=== PATIENT | male | born 1940 | race Caucasian/White ===

== ENCOUNTER → 2018-01-13 | Outpatient (CLI) | payer OTHER | LOC: PLD 08:25 → LAB SHORT 08:25 | DX: D48.5 Neoplasm of uncertain behavior of skin (principal) | CPT/HCPCS: 88305 ==

== ENCOUNTER → 2018-07-01 | Outpatient (CLI) | payer OTHER | END | disposition home or self-care (01) | LOC: PLD 08:43 → LAB SHORT 08:43 | DX: D22.5 Melanocytic nevi of trunk (principal) | CPT/HCPCS: 88305 ==

== ENCOUNTER → 2018-12-29 | Outpatient (CLI) | payer OTHER | END | disposition home or self-care (01) | LOC: LAB SHORT 08:58 → PLD 08:58 | DX: D22.5 Melanocytic nevi of trunk (principal) | CPT/HCPCS: 88305 ==

== ENCOUNTER → 2019-12-15 | Outpatient (CLI) | payer OTHER | END | disposition home or self-care (01) | LOC: LAB SHORT 11:50 → LAB EV 11:50 | DX: R35.0 Frequency of micturition (principal) | CPT/HCPCS: 87086 ==

== ENCOUNTER → 2021-08-07 | Outpatient (CLI) | payer OTHER ==
[2021-08-07 16:56] LABS: BASOPHILS ABSOLUTE AUTO 0.02 K/mm3 (0.00-0.23); BASOPHILS PERCENT AUTO 0 % (0-2); EOSINOPHILS ABSOLUTE AUTO 0.02 K/mm3 (0.00-0.68); EOSINOPHILS PERCENT AUTO 0 % (0-6); Hematocrit 42.6 % (37.0-53.0); Hemoglobin 13.8 g/dL (13.5-17.5); IMMATURE GRAN ABSOLUTE AUTO 0.05 K/mm3 (0.00-0.10); IMMATURE GRAN PERCENT AUTO 1 % (0-1); LYMPHOCYTES ABSOLUTE AUTO 0.88 K/mm3 (0.84-5.20); LYMPHOCYTES PERCENT AUTO 10 % (21-46); MONOCYTES ABSOLUTE AUTO 0.44 K/mm3 (0.16-1.47); MONOCYTES PERCENT AUTO 5 % (4-13); Mean Corpuscular HGB 27.9 pg (26.0-34.0); Mean Corpuscular HGB Conc 32.4 g/dL (31.5-36.5); Mean Corpuscular Volume 86 fL (80-100); Mean Platelet Volume 9.7 fL (9.1-12.4); NEUTROPHILS PERCENT AUTO 84 % (41-73); Platelet Count 338 K/mm3 (150-400); RDW Coefficient Variation 14.6 % (11.7-14.2); RDW Standard Deviation 45.6 fL (35.1-46.3); Red Blood Cell Count 4.94 M/mm3 (4.30-5.90); White Blood Cell Count 9.01 K/mm3 (4.00-11.30)
[2021-08-07 17:11] LABS: Alanine Aminotransfer (ALT/SGP 17 U/L (12-78); Albumin, Blood 4.2 g/dL (3.4-5.0); Albumin/Globulin Ratio 1.2 (0.8-1.8); Alk Phos 83 U/L (40-126); Anion Gap 10 mmol/L (6-16); Aspartate Aminotrans (AST/SGOT 24 U/L (12-37); Bilirubin, Total 0.7 mg/dL (0.1-1.0); Blood Urea Nitrogen 14 mg/dL (8-24); Bun/Creatinine Ratio 14.7 (12.0-20.0); CO2, Blood 29 mmol/L (21-32); Chloride, Blood 98 mmol/L (98-108); Creatinine, Blood 0.95 mg/dL (0.60-1.20); Globulin, Blood 3.6 g/dL (2.2-4.0); Glomerular Filtration Rate >60 (60-); Glucose, Blood 144 mg/dL (70-99); Potassium, Blood 3.9 mmol/L (3.5-5.5); Sodium, Blood 137 mmol/L (136-145); Total Protein, Blood 7.8 g/dL (6.4-8.2)
== END | disposition home or self-care (01) ==
LOC: LAB SHORT 16:49
PROVIDERS: Family Medicine
DX: R51.9 Headache, unspecified (principal)
CPT/HCPCS: 80053; 85025

== ENCOUNTER 2023-10-25 13:57 | Inpatient (IN) | payer OTHER ==
[~2023-10-25] VITALS: Ht 180.3 cm; Wt 71.8 kg
[2023-10-25] MEDS ORDERED: CARBIDOPA-LEVO1 EA15 PO (14:30)
[2023-10-25] MEDS ORDERED: RIVASTIGMINE PO (14:30)
[2023-10-25] MEDS ORDERED: TAMSULOSIN HCL0.4 M1 PO (14:58)
[2023-10-25] MEDS ORDERED: INBRIJA42 M1 INH (14:58)
[2023-10-25] MEDS ORDERED: RASAGILINE PO (14:58)
[2023-10-25 15:12] LABS: Hematocrit 38.6 % (37.0-53.0); Hemoglobin 12.6 g/dL (13.5-17.5); Mean Corpuscular HGB Conc 32.6 g/dL (31.5-36.5); Mean Corpuscular Volume 86 fL (80-100); Mean Platelet Volume 10.3 fL (9.1-12.4); Platelet Count 263 K/mm3 (150-400); RDW Coefficient Variation 15.1 % (11.7-14.2); RDW Standard Deviation 47.5 fL (35.1-46.3)
[2023-10-25 15:35] LABS: BAND PERCENT MAN 4 % (0-8); BASOPHILS ABSOLUTE MAN 0.05 K/mm3 (0.00-0.23); BASOPHILS PERCENT MAN 1 % (0-2); EOSINOPHILS PERCENT MAN 0 % (0-6); LYMPHOCYTES ABSOLUTE MAN 0.86 K/mm3 (0.84-5.20); LYMPHOCYTES PERCENT MAN 16 % (21-46); METAMYELOCYTE ABSOLUTE MAN 0.05 K/mm3 (0.00-0.00); METAMYELOCYTE PERCENT MAN 1 % (0-0); MONOCYTES ABSOLUTE MAN 0.81 K/mm3 (0.16-1.47); MONOCYTES PERCENT MAN 15 % (4-13); NEUTROPHILS ABSOLUTE MAN 3.61 K/mm3 (1.96-9.15); SEG NEUTROPHILS PERCENT MAN 63 % (41-73); TOTAL CELLS COUNTED 100
[2023-10-25 15:42] LABS: Source, Urine Clean Catch
[2023-10-25 15:46] LABS: Alanine Aminotransfer (ALT/SGP 11 U/L (12-78); Albumin, Blood 3.2 g/dL (3.4-5.0); Albumin/Globulin Ratio 0.9 (0.8-1.8); Alk Phos 57 U/L (50-136); Anion Gap 4 mmol/L (6-16); Aspartate Aminotrans (AST/SGOT 127 U/L (12-37); Bilirubin, Total 0.4 mg/dL (0.1-1.0); Blood Urea Nitrogen 25 mg/dL (8-24); Bun/Creatinine Ratio 27.7 (12.0-20.0); CHOL/HDL RATIO 2.5; CO2, Blood 29 mmol/L (21-32); Calcium, Blood 7.8 mg/dL (8.5-10.1); Chloride, Blood 103 mmol/L (98-108); Cholesterol 150 mg/dL (50-200); Globulin, Blood 3.6 g/dL (2.2-4.0); Glomerular Filtration Rate 84 (60-); Glucose, Blood 131 mg/dL (70-99); HDL Cholesterol 59 mg/dL (>39); LDL/HDL RATIO 1.3; Low Density Lipoprotein Chol 76 mg/dL (0-110); Potassium, Blood 4.1 mmol/L (3.5-5.5); Sodium, Blood 136 mmol/L (136-145); Total Protein, Blood 6.8 g/dL (6.4-8.2); Triglycerides 74 mg/dL (30-160); Very Low Density Lipoprot Chol 14 mg/dL (6-32)
[2023-10-25 15:51] LABS: Appearance, Urine Clear (Clear); Bilirubin, Urine Neg (Neg); Blood, Urine 2+ (Neg); Color, Urine Yellow (P-Yellow); Glucose Qualitative, Urine Neg (Neg); Ketones, Urine 1+ (Neg); Leukocyte Esterase, Urine Neg (Neg); Nitrite, Urine Neg (Neg); Protein, Urine 2+ (Neg); Urobilinogen, Urine NORM (Normal)
[2023-10-25 16:05] LABS: Granular Casts 0-2 /lpf (0)
[2023-10-25 16:06] LABS: White Blood Cells, Urine 0-2 /hpf (0-5)
[2023-10-25 16:08] LABS: Bacteria Mod /hpf; Squamous Epithelial Cells Rare /hpf (Few)
[2023-10-25 16:09] LABS: Amorphous Light (0-Heavy); Mucus Heavy (0-Heavy)
[2023-10-25 16:53] LABS: International Normalized Ratio 1.03; Prothrombin Time Results 10.8 Sec (9.7-11.5)
[2023-10-25 18:46] VITALS: BP 104/67
[2023-10-25] MEDS ORDERED: CARBLEV25 SL (18:50)
[2023-10-25] MEDS ORDERED: CARBLEV25 PO (18:51)
[2023-10-25 19:50] VITALS: BP 117/73
--- NOTE | 2023-10-25 22:44 | NUR ---
ASSUMPTION OF CARE AFTER RECEIVING REPORT FROM HELENE LONG, THIS RN ASSUMED CARE AT APPROX 1915. DURING INITIAL ENCOUNTER WITH THE PATIENT, THE PATIENT WAS LETHARGIC, RESTING WITH EYES CLOSED. NO SIGNS OF DISTRESS NOTED, EASILY AROUSABLE TO VERBAL STIMULI. IS ALERT AND ORIENTED X1. REPORTED THAT HE WAS "IN [place] DIFFICULTY ORIENTING TO CURRENT SITUATION, DIFFICULTY PARTICIPATING IN OR FOLLOWING CONVERSATION. INTERMITTENTLY PULLS AT LINES, CORDS. VSS. TELEMETRY SHOWING SINUS 60's-70's. BP STABLE. WHEN ASKED IF EXPERIENCING CHEST PAIN, PATIENT REPORTS "HEART PAIN." UNABLE TO ANSWERS QUESTIONS OR EXPLAIN FURTHER. HEPARIN BOLUS AND GTT INITIATED PER EMAR. IS ON ROOM AIR, SATS >90%. X2 IV's PLACED BY THIS RN. ATTENDS NOW IN PLACE. PO HOME MEDICATIONS ADMINISTERED PER EMAR, ABLE TO SWALLOW WITHOUT DIFFICULTY WITH WATER. COOPERATIVE WITH CARE AT THAT TIME. AT APPROX 2230, PATIENT ATTEMPTED TO AMBULATE OUT OF BED WITHOUT ASSIST. IV PULLED. PATIENT REMOVED WELDER MACHINE OPERATOR. X3 RN's AT BEDSIDE, UNABLE TO REORIENT TO CURRENT SITUATION. REPOSITIONED IN BED. CONTINUING TO PULL AT LINES/CORDS. NEW IV PLACED BY CONTINUOUS IMPROVEMENT COACH, JENNIFER. PATIENT REPORTING THAT HE NEEDS TO VOID, UNABLE TO VOID. BLADDER SCAN PERFORMED, >350ML. STRAIGHT CATH PROCEDURE TO BE PERFORMED PER POLICY. WHILE PERFORMING STRAIGHT CATH PROCEDURE, PATIENT BEGAN ATTEMPTING TO PUNCH AT STAFF MEMBERS. UNCOOPERATIVE WITH CARE, UNABLE TO REORIENT. ATTENDS, LINEN CHANGE PERFORMED BY X3 RN's, PATIENT CONTINUING TO ATTEMPT TO PUNCH AT STAFF. GOPI VEST NOW IN PLACE PER VERBAL ORDER BY MD VEGAS WHILE ROUNDING EARLIER. MD SUNG CONTACTED WITH UPDATE. PATIENT DOES RELAX ONCE STIMULI IS REDUCED, BUT IS CONTINUING TO ATTEMPT TO PULL AT LINES/DEVICES. CALL LIGHT IN REACH. BED ALARM ON. WILL CONTINUE TO MONITOR.
--- NOTE | 2023-10-25 23:05 | NUR ---
PATIENT's LEFT BEDSIDE AT APPROX 1930. PATIENT IS A POOR HISTORIAN, LIMITED ADMISSION HEALTH HISTORY DUE TO MENTATION. DID PROVIDE HOME MEDICATION LIST, HYDROMETER FINISHER UPDATED HOME MEDICATION LIST. COLLECTED OTHER INFORMATION FROM ELECTRONIC HEALTH RECORD. MD VELA.
[2023-10-26 00:02] VITALS: BP 150/88
[2023-10-26 00:49] VITALS: BP 159/87
--- NOTE | 2023-10-26 00:52 | NUR ---
UPDATE AT APPROX 2345, THIS RN NOTED THAT THE PATIENT HAD PULLED X3 IV ACCESS SITES. ATTEMPTING TO AMBULATE OUT OF BED. WHILE ATTEMPTING TO REORIENT, PATIENT BECAME INCREASINGLY AGITATED, ATTEMPTING TO PUNCH STAFF MEMBERS. UNABLE TO REORIENT. REMAINS AOX1. X3 RN's AT BEDSIDE. REPOSITIONED IN BED. X2 IV ACCESS SITES PLACED. BECOMING INCREASINLY VIOLENT TOWARDS STAFF. PLACED IN SOFT BILATERAL WRIST RESTRAINTS, GOPI VEST REMOVED. MD ON UNIT ROUNDING, MADE AWARE. RECEIVED ORDER FOR IM ZYPREXA IF ORDERED PO SEROQUEL IS INEFFECTIVE. ADMINISTERED PO SEROQUEL PER EMAR. CHANGED ATTENDS, PLACED CONDOM CATHETER FOR URINARY INCONTINENCE MANAGEMENT. DURING THIS ENCOUNTER, RATE INCREASE TO 130's-150's, SUSTAINING. MD NOTIFED. EKG OBTAINED, MD TO UNIT TO REVIEW EKG. RECEIVED ORDER FOR IV METOPROLOL PUSH. WILL ADMINISTER PER EMAR. LAB AT BEDSIDE TO DRAW REPEAT LABS, INCLUDING TROPONIN LEVELS. BP ELEVATED, SBP 150's.
[2023-10-26 01:07] LABS: BASOPHILS ABSOLUTE AUTO 0.01 K/mm3 (0.00-0.23); BASOPHILS PERCENT AUTO 0 % (0-2); EOSINOPHILS PERCENT AUTO 0 % (0-6); Hematocrit 42.7 % (37.0-53.0); Hemoglobin 14.1 g/dL (13.5-17.5); Mean Corpuscular HGB 28.2 pg (26.0-34.0); Mean Corpuscular Volume 85 fL (80-100); Mean Platelet Volume 9.5 fL (9.1-12.4); Platelet Count 258 K/mm3 (150-400); White Blood Cell Count 5.31 K/mm3 (4.00-11.30)
[2023-10-26 01:08] LABS: IMMATURE GRAN ABSOLUTE AUTO 0.02 K/mm3 (0.00-0.10); IMMATURE GRAN PERCENT AUTO 0 % (0-1); LYMPHOCYTES ABSOLUTE AUTO 1.51 K/mm3 (0.84-5.20); LYMPHOCYTES PERCENT AUTO 28 % (21-46); MONOCYTES ABSOLUTE AUTO 0.73 K/mm3 (0.16-1.47); MONOCYTES PERCENT AUTO 14 % (4-13); NEUTROPHILS ABSOLUTE AUTO 3.04 K/mm3 (1.96-9.15); NEUTROPHILS PERCENT AUTO 57 % (41-73)
--- NOTE | 2023-10-26 01:10 | NUR ---
X1 DOSE OF 5MG IV METOPROLOL ADMINISTERED PER EMAR. RATE DECREASE TO 90's-110's. BP 126/66 (84). MD AT BEDSIDE. RECEIVED VERBAL ORDER TO ADMINISTER AN ADDITIONAL DOSE OF 5MG IV METOPROLOL IN ONE HOUR IF RATE SUSTAINS >110. PATIENT CONTINUES TO INTERMITTENTLY PULL AT LINES/CORDS/DEVICES WITHIN REACH. IS MORE RELAXED, RESTING WITH EYES CLOSED AT TIMES. UNABLE TO REORIENT. CONTINUED MUMBLED SPEECH NOTED.
[2023-10-26 01:27] LABS: Albumin, Blood 3.3 g/dL (3.4-5.0); Albumin/Globulin Ratio 0.8 (0.8-1.8); Bilirubin, Total 0.2 mg/dL (0.1-1.0); Bun/Creatinine Ratio 27.9 (12.0-20.0); C-REACTIVE PROTEIN, EXT RANGE 6.85 mg/dL (0.000-0.300); Creatinine, Blood 0.72 mg/dL (0.60-1.20); Potassium, Blood 3.5 mmol/L (3.5-5.5); Total Protein, Blood 7.3 g/dL (6.4-8.2)
--- NOTE | 2023-10-26 01:38 | NUR ---
MD TO UNIT TO ROUND ON PATIENT. RECEIVED ORDER TO OBTAIN EKG ONCE RATE IS STABLE, 90 OR LESS, AND TO CONTACT TO COME VIEW EKG. WILL OBTAIN PER ORDER.
--- NOTE | 2023-10-26 02:29 | NUR ---
REPEAT EKG OBTAINED RATE MAINTAINING 80's-90's. MD TO UNIT FOR ROUNDING, VIEWED EKG. NOTIFIED OF TROPONIN OF 4802. NO NEW ORDERS RECEIVED.
[2023-10-26 03:00] VITALS: BP 141/92
--- NOTE | 2023-10-26 06:04 | NUR ---
SHIFT SUMMARY SEE PREVIOUS NOTES. PATIENT REMAINS ALERT AND ORIENTED X1. DECREASED AGITATION TOWARDS STAFF NOTED. CONTINUOUSLY ATTEMPTS TO PULL AT CONDOM CATH, TELEMETRY, ETC. UNABLE TO REORIENT. BILATERAL SOFT WRIST RESTRAINTS IN PLACE DUE TO CONTINUOUS PULLING AT LINES, CORDS AND UNABLE TO OBTAIN A CLINICAL SITTER AT THIS TIME. PO SEROQUEL ADMINISTERED AND IM ZYPREXA ADMINISTERED. HAS SINCE CONVERTED FROM AFIB 90's-110's TO SINUS 80's. HEPARIN GTT INFUSING PER EMAR. IVF INFUSING PER EMAR. SEE PREVIOUS NOTES. BP STABLE. REMAINS ON ROOM AIR, SATS >90%. NO SHORTNESS OF BREATH AT REST NOTED. OCCASSIONAL, PRODUCTIVE COUGH NOTED. CONDOM CATH PATENT, DRAINING RICO URINE TO GRAVITY. ATTENDS IN PLACE. REPOSITIONING TOLERATED. CALL LIGHT IN REACH. BED ALARM ON. WILL REPORT TO ONCOMING RN.
--- NOTE | 2023-10-26 07:30 | NUR ---
Initial assessment: Patient is resting with his eyes closed, he easily awakens with verbal stimuli. He is oriented to self only, he thinks we are in dialysis. He is reoriented. He is in bilat upper extremity soft wrist restraints due to multiple attempts to get OOB and pulling at IVs and other lines. Patient does immediately go to his lines when the restraints are removed. Restraints back in place. HR irreg, he is in SR with PACs with a rate in the 70s-80s. He denies chest pain at this time. LS CTA, biox is 100% on RA. BT+, attends in place. He has a condom cath in place draining clear pink tinged urine. This RN assisted the patient to brush his teeth. AM meds given with bites of applesauce, if the pills dont get swallowed right away the patient chews on them. He is able to get them down after a couple of bites of applesauce. He is able to take sips of water after multiple attempts to prompt him to suck on the straw and swallow. Patient is repositioned, bed alarm on for safety. Call light in reach.
[2023-10-26 07:48] VITALS: BP 120/95
[2023-10-26 11:59] VITALS: BP 114/99
--- NOTE | 2023-10-26 13:40 | NUR ---
Update: His and son are at the bedside. Pt was awake pulling his socks off in bed. He is bathed and able to make it to the chair with a 2PA and multiple ques. He is more alert and able to tell me his whole name and , he is able to tell me who his and son are but he does not know where he is at. He is able to take his pills with some prompting from his . He is resting in the chair with his eyes closed. Family at the bedside, restraints are off at this time.
--- NOTE | 2023-10-26 18:16 | NUR ---
Summary: Patient has been alert to self only T/O the shift. He has been in restraints while the family is not present due to pulling at lines and impulsivity. No C/O pain other than a sore throat. HRR, he has been in SR with PACs with a rate in the 70s-80s. LS CTA, Biox has been 100% on RA T/O the shift. He has been coughing and sputtering off and on with attempting to swallow medications, patient has been having a good amount of difficulty following directions. BT+, he did not have a BM this shift. He was on a heparin gtt, this was transitioned to Lovenox SC BID. VSS. He was able to get OOB to the chair and attempted to use the bedside commode. is currently at the bedside talking with and soothing the patient. Call light in reach, bed alarm on for safety.
[2023-10-26 20:30] VITALS: BP 141/72
--- NOTE | 2023-10-26 22:14 | NUR ---
ASSUMPTION OF CARE: PATIENT IS ALERT AND ORIENTED X APPROXIMATELY 2, AND SELF. RA SPO2 >96%. SLIGHTLY AFEBRILE AT 100.0, ENDORSED A POSSIBLE ALLERGY TO TYLENOL WILL CONTINUE TO MONITOR. INFUSING MAINTENECE FLUIDS AT 50, NS. DENIES CHEST PAIN PRESSURE OR SOB. WAS ABLE TO TOLERATE PILLS 1 AT A TIME, SOME MINOR GULPING, EDUCATED, COUGH STILL DRY. EDUCATED ON PATIENT CONDITION AND POSSIBLE PROBLEMS IN THE FUTURE DUE TO DIAGNOSIS AND LABS, >35 MINUTES.
[2023-10-27 00:49] VITALS: BP 146/87
[2023-10-27 04:04] VITALS: BP 153/85
[2023-10-27 04:17] LABS: BASOPHILS ABSOLUTE AUTO 0.01 K/mm3 (0.00-0.23); BASOPHILS PERCENT AUTO 0 % (0-2); EOSINOPHILS ABSOLUTE AUTO 0.01 K/mm3 (0.00-0.68); EOSINOPHILS PERCENT AUTO 0 % (0-6); Hematocrit 41.1 % (37.0-53.0); Hemoglobin 13.3 g/dL (13.5-17.5); IMMATURE GRAN ABSOLUTE AUTO 0.02 K/mm3 (0.00-0.10); IMMATURE GRAN PERCENT AUTO 1 % (0-1); LYMPHOCYTES ABSOLUTE AUTO 1.16 K/mm3 (0.84-5.20); LYMPHOCYTES PERCENT AUTO 29 % (21-46); MONOCYTES ABSOLUTE AUTO 0.64 K/mm3 (0.16-1.47); MONOCYTES PERCENT AUTO 16 % (4-13); Mean Corpuscular HGB 27.5 pg (26.0-34.0); Mean Corpuscular HGB Conc 32.4 g/dL (31.5-36.5); Mean Corpuscular Volume 85 fL (80-100); Mean Platelet Volume 10.1 fL (9.1-12.4); NEUTROPHILS ABSOLUTE AUTO 2.23 K/mm3 (1.96-9.15); NEUTROPHILS PERCENT AUTO 55 % (41-73); Platelet Count 276 K/mm3 (150-400); RDW Coefficient Variation 14.9 % (11.7-14.2); RDW Standard Deviation 46.2 fL (35.1-46.3); Red Blood Cell Count 4.84 M/mm3 (4.30-5.90); White Blood Cell Count 4.07 K/mm3 (4.00-11.30)
[2023-10-27 04:32] LABS: Bun/Creatinine Ratio 24.8 (12.0-20.0); Calcium, Blood 8.1 mg/dL (8.5-10.1); Creatinine, Blood 0.64 mg/dL (0.60-1.20)
--- NOTE | 2023-10-27 06:29 | NUR ---
EOS: PATIENT SAFETY MAINTAINED SAFETY AND FALL FREE WITH RESTRAINT MANAGEMENT. STILL DENYING CHEST PAIN PRESSURE OR SOB. STILL ON RA FREQUENT CHECKS, CIRCULATION AND BREAKS GIVEN OFTEN, PATIENT IMPROVING, NOW AFEBRILE. PATIENT STILL NEEDS RESTRAINTS AT THIS TIME.
[2023-10-27 08:06] VITALS: BP 130/74
--- NOTE | 2023-10-27 09:00 | NUR ---
NURSING PCU DAYSHIFT: Assumed care of pt at approx 0700. Confused, not directable, does not follow basic commands though will at times answer simple yes/no questions, mumbles incoherently. B/L soft wrist restraints in place, alternates between resting comfortably and kicking legs/pulling at restraints. Tele in place, NSR w/PAC's, SBP 130 prior to a.m. meds, no noted edema. L/S cta t/o, O2 sat mid 90's on RA, occ BLOCKER AND POLISHER GOLD WHEEL cough. Abd soft, BT+, condom cath in place draining tea colored urine w/small amt of blood clots noted in bottom of the bag. PIV x2, NS infusing at 50mls/hr w/abx as scheduled. Spent majority of a.m. at bedside. Pt requires total care w/ADL's, including meals. Able to take pills in applesauce and consumed approx 25% of breakfast. AM and oral care completed, tolerated fairly well. No s/s of acute distress at this time, awaiting rounding from PMD, call light in reach, cont to monitor closely for changes.
--- NOTE | 2023-10-27 11:53 | NUR ---
Upon receiving a referral for spiritual care, I visited the patient. The patient is sleeping and his sp, Joselyn is bedside. She shares about the challenges of caregiving for her , about her strong Confucianist salazar and about her worries going forward. I normalize her fears and feelings and provide therapeutic listening and prayer. Joselyn responded well and showed signs of being encouraged in her salazar.
[2023-10-27 15:54] VITALS: BP 109/65
--- NOTE | 2023-10-27 17:26 | NUR ---
NURSING PCU DAYSHIFT SUMMARY: No significant changes noted t/o the shift. Spouse has been at bedside t/o majority of the day, plan of care discussed and questions answered. Pt able to have several extensive restraint breaks for ROM/rest during periods of continuous bedside monitoring by staff/family. Continues to be confused w/hallucinations, mumbles often, unable to be redirected. Ambulated twice to bathroom to attempt BM though was unsuccessful. Assisted w/shower and ADL's t/o shift. Requires minimum of two staff members to ambulate w/FWW and gait belt d/t impulsiveness and unsteady gait. Head CT completed, results reviewed and discussed w/spouse. Pt has spent majority of shift in the recliner, tolerated fairly well. Becoming more agitated t/o the afternoon, safety measures in place for line protection and fall prevention. Cont to monitor until rpt is given to LINDA RN.
[2023-10-27 19:48] VITALS: BP 142/80
[2023-10-28 04:33] VITALS: BP 131/73
[2023-10-28 05:08] LABS: BASOPHILS ABSOLUTE AUTO 0.01 K/mm3 (0.00-0.23); BASOPHILS PERCENT AUTO 0 % (0-2); EOSINOPHILS ABSOLUTE AUTO 0.01 K/mm3 (0.00-0.68); EOSINOPHILS PERCENT AUTO 0 % (0-6); Hematocrit 42.4 % (37.0-53.0); Hemoglobin 13.8 g/dL (13.5-17.5); IMMATURE GRAN ABSOLUTE AUTO 0.01 K/mm3 (0.00-0.10); IMMATURE GRAN PERCENT AUTO 0 % (0-1); LYMPHOCYTES ABSOLUTE AUTO 0.96 K/mm3 (0.84-5.20); LYMPHOCYTES PERCENT AUTO 26 % (21-46); MONOCYTES ABSOLUTE AUTO 0.42 K/mm3 (0.16-1.47); MONOCYTES PERCENT AUTO 12 % (4-13); Mean Corpuscular HGB 27.5 pg (26.0-34.0); Mean Corpuscular HGB Conc 32.5 g/dL (31.5-36.5); Mean Corpuscular Volume 85 fL (80-100); NEUTROPHILS ABSOLUTE AUTO 2.25 K/mm3 (1.96-9.15); NEUTROPHILS PERCENT AUTO 61 % (41-73); Platelet Count 255 K/mm3 (150-400); RDW Coefficient Variation 14.9 % (11.7-14.2); Red Blood Cell Count 5.02 M/mm3 (4.30-5.90); White Blood Cell Count 3.66 K/mm3 (4.00-11.30)
--- NOTE | 2023-10-28 05:23 | NUR ---
SHIFT SUMMARY ORIENTED TO SELF AND TO FAMILY MEMBERS, BUT CONTINUES TO HAVE DIFFICULT TIME REMEMBERING TIME, WHERE HE IS AT, AND ADDING SIMPLE NUMBERS TOGETHER. CAN BE IRRITABLE WITH STAFF ATTEMPTING TO SWAT OR GRAB STAFF. IMPULSIVE AT TIMES BY ATTEMPTING TO CLIMB OUT OF THE BED WITHOUT STAFF ASSISTANCE. BED ALARM IN PLACE FOR PT SAFETY. CONTINUES TO PULL AT LINES, IV'S, AND OR BLOOD PRESSURE CUFFS. SOFT WRIST RESTRAINTS UTILIZED WITH FREQUENT BREAKS T/O THE NIGHT. HAS INTERMITTENT VISUAL HALLUCINATIONS WELL. OFTEN WOULD WOULD MISTAKE ITEMS IN THE ROOM FOR FISHING PULLS OR MEMBERS OF THE . PT'S SON, BOAZ CAMP, VISITED EARLY ON IN THE SHIFT AND WAS GIVEN AN UPDATE ON THE PT S CONDITION. PT'S SON SAID HE D BE BACK IN THE AM. CARDIAC CASTELLON, REMAINS MED STATUS WITHOUT TELE, BUT DENIES EXPERIENCING ANY CP AND OR PRESSURE. SBP HAS BEEN STABLE RANGING 100-140'S. RESPIRATORY, MAINTAINS SPO2 >94% ON RA, DENIES FEELING SOB WHEN AT REST. OFFERED THICKENED WATER DURING THE NIGHT, BUT COUGH NOTED UNLESS GIVEN VERY SMALL SIPS WITH SPOON. GI/, CONDOM CATH REMAINS IN PLACE VOIDING TEA COLORED URINE. NO BM THIS SHIFT, BUT BS REMAIN PRESENT AND ACTIVE. CONTINUES TO BE WEAK WITH AMBULATION WITH STAFF AND FWW WALKER W/GAIT BELT NEEDED. Q2 HR REPOSITIONING USED TO PREVENT ANY SKIN BREAKDOWN. NS RUNNING ORDERED VIA EMAR. ASSESSED PT FOR RISKS OF ANY IGNITION SOURCES WELL BEHAVIORS FOR INCREASED RISKS OF FIRE DANGER. PT EDUCATED ON COMMON SOURCES OF IGNITION WELL NEED TO KEEP A SAFE ENVIRONMENT. NO NEW ORDERS AT THIS TIME, WILL REPORT TO ONCOMING RN. LISSY WOODWARD OF THIS NOTE
[2023-10-28 05:25] LABS: Albumin/Globulin Ratio 0.8 (0.8-1.8); Bilirubin, Total 0.3 mg/dL (0.1-1.0); Bun/Creatinine Ratio 19.3 (12.0-20.0); Creatinine, Blood 0.67 mg/dL (0.60-1.20); Globulin, Blood 3.9 g/dL (2.2-4.0); Potassium, Blood 3.8 mmol/L (3.5-5.5); Total Protein, Blood 6.9 g/dL (6.4-8.2)
[2023-10-28 07:56] VITALS: BP 176/83
[2023-10-28 11:09] VITALS: BP 135/90
[2023-10-28 15:04] VITALS: BP 124/76
--- NOTE | 2023-10-28 16:34 | NUR ---
VEST AND SOFT WRIST RESTRAINT ORDER OBTAINED PT HAS BEEN IN SOFT WRIST RESTRAINTS THIS SHIFT BECAUSE HE CONTINUES TO PULL AT TUBES/LINES, ATTEMPTING TO GET OOB UNSAFELY, AND IS NOT FOLLOWING DIRECTIONS. HE HAS BEEN CONFUSED AND AGGITATED. AROUND 1545 HE START TO CLIMB OOB DESPITE BEING IN SOFT WRIST RESTRIANTS. HE WAS UNDIRECTABLE BY HIS OR NURSING STAFF. HE WAS TIGHTLY GRABBING STAFF ANF FAMILY. I CALLED THE CHARGE NURSE CAPRICE FOR ASSITANCE. WE TOILETED THE PT ON THE BEDPAN AND WITH THE URINAL, REPOSITIONED HIM AGAIN, AND HE WAS STILL ATTEMPTING TO GET OUT OF BED. WE PUT THE VEST ON THE PT WITH THE RESTRAINS AND HE IS CALMLY RESTING IN THE ROOM. THE VIRTUAL SOCIAL SCIENCE PROFESSOR WOULD NOT BE APPROPRAITE BECAUSE OF THE PT'S MENTATION. THE HAS BEEN EDUCATED T/O THE PROCESS. CHARGE NURSE AWARE OF DOUBLE RESTRAINTS. ORDER FROM DR. MONTEIRO.
--- NOTE | 2023-10-28 17:18 | NUR ---
SHIFT SUMMARY PT HAS BEEN VERY CONFUSED THIS SHIFT. HE IS CURRENTLY IS SOFT WRIST RESTRAINTS AND THE GOPI VEST. HIS HAS BEEN AT THE BEDSIDE SINCE ABOTU 1200 AND HAS BEEN UPDATED ON THE PT'S CARE. HE HAS BEEN ON RA TO DAY AND SP02 HAS BEEN >95%. THE PT DENIES ANY SOB OR CHEST PAIN. HE IS MEDICAL W/O TELE. HE HAS A CONDOM CATH DRAINING TO GRAVITY AND IT WAS CHANGED OUT THIS SHIFT. WE TRIED PUTTING THE PT ON THE BEDPAN AND HE PASSED SOME GAS, BUT HE WAS UNABLE TO PASS A BOWEL MOVEMENT. HE WAS STRUGGLING SWALLOWING PILLS AND THICKENED LIQUIDS THIS MORNING SO I DOWN GRADED HIS DIET AND DR. MONTEIRO WANTED A SPEECH EQUALUATION. WHEN JULISSA FROM SPEECH SAW HIM, SHE STATED THAT HE IS NPO BESIDES MEDIATIONS. MEDS NEED TO BE CRUSHED IN APPLE SAUCE AND SHE RECCOMENDED ONLY ESSENTIAL MEDICATIONS AND TO LIMIT ORAL INTAKE. SHE WILL EVALUATE HIM AGAIN IN THE MORNING. SEE NOTES FOR MORE UPDATES.
[2023-10-28 20:16] VITALS: BP 147/79
[2023-10-29 03:31] VITALS: BP 163/82
[2023-10-29 04:37] VITALS: BP 149/76
--- NOTE | 2023-10-29 05:09 | NUR ---
SHIFT SUMMARY CONTINUES TO BE ORIENTED TO SELF AND OCCASIONALLY TO FAMILY MEMBERS, BUT CONTINUES TO HAVE DIFFICULT TIME REMEMBERING TIME, WHERE HE IS AT, AND ADDING SIMPLE NUMBERS TOGETHER. HAS BEEN MUCH MORE IRRITABLE WITH STAFF THIS SHIFT BY ATTEMPTING TO SWAT, KICK, OR GRAB STAFF. CONTINUES TO BE IMPULSIVE BY ATTEMPTING TO CLIMB OUT OF THE BED WITHOUT STAFF ASSISTANCE. BED ALARM REMAINS IN PLACE FOR PT SAFETY. CONTINUES TO PULL AT LINES, IV'S, AND OR BLOOD PRESSURE CUFFS. SOFT WRIST RESTRAINTS WELL VEST UTILIZED WITH FREQUENT BREAKS T/O THE NIGHT. HAS INTERMITTENT VISUAL HALLUCINATIONS INCLUDING BELIEVING HE IS SEEING HIS DOG AND OR PEOPLE HE KNEW IN THE . SPEECH CONTINUES TO BE MOSTLY MUMBLED WITH EYES BEING TIGHTLY SHUT RATHER THAN OPEN SPONTANEOUSLY. PT S SON, BOAZ SWENSON AND PT S VISITED EARLY ON IN THE SHIFT. BOTH WERE UPDATED ON THE PT S CONDITION AND ENCOURAGED TO VISIT IN THE MORNING FOR WHEN THE PROVIDERS ROUND. CARDIAC CASTELLON, REMAINS MED STATUS WITHOUT TELE, BUT DENIES EXPERIENCING ANY CP AND OR PRESSURE. SBP HAS BEEN STABLE RANGING 130-140'S. RESPIRATORY, MAINTAINS SPO2 >94% ON RA, DENIES FEELING SOB WHEN AT REST. REMAINS NPO EXCEPT FOR MED ADMINISTRATION PER ST RECOMMENDATIONS. GI/, CONDOM CATH REPLACED THIS SHIFT AND IS VOIDING TEA COLORED URINE. NO BM THIS SHIFT. Q2 HR REPOSITIONING USED TO PREVENT ANY SKIN BREAKDOWN. NS RUNNING ORDERED VIA EMAR. ASSESSED PT FOR RISKS OF ANY IGNITION SOURCES WELL BEHAVIORS FOR INCREASED RISKS OF FIRE DANGER. PT EDUCATED ON COMMON SOURCES OF IGNITION WELL NEED TO KEEP A SAFE ENVIRONMENT. NO NEW ORDERS AT THIS TIME, WILL REPORT TO ONCOMING RN. LISSY WOODWARD OF THIS NOTE
[2023-10-29 05:11] LABS: BASOPHILS ABSOLUTE AUTO 0.02 K/mm3 (0.00-0.23); BASOPHILS PERCENT AUTO 0 % (0-2); EOSINOPHILS ABSOLUTE AUTO 0.01 K/mm3 (0.00-0.68); EOSINOPHILS PERCENT AUTO 0 % (0-6); Hematocrit 43.6 % (37.0-53.0); IMMATURE GRAN ABSOLUTE AUTO 0.02 K/mm3 (0.00-0.10); IMMATURE GRAN PERCENT AUTO 0 % (0-1); LYMPHOCYTES ABSOLUTE AUTO 0.92 K/mm3 (0.84-5.20); LYMPHOCYTES PERCENT AUTO 21 % (21-46); MONOCYTES ABSOLUTE AUTO 0.53 K/mm3 (0.16-1.47); MONOCYTES PERCENT AUTO 12 % (4-13); Mean Corpuscular HGB 27.4 pg (26.0-34.0); Mean Corpuscular HGB Conc 32.1 g/dL (31.5-36.5); Mean Corpuscular Volume 85 fL (80-100); Mean Platelet Volume 10.4 fL (9.1-12.4); NEUTROPHILS ABSOLUTE AUTO 2.95 K/mm3 (1.96-9.15); NEUTROPHILS PERCENT AUTO 66 % (41-73); Platelet Count 245 K/mm3 (150-400); RDW Coefficient Variation 14.7 % (11.7-14.2); RDW Standard Deviation 46.2 fL (35.1-46.3); Red Blood Cell Count 5.11 M/mm3 (4.30-5.90); White Blood Cell Count 4.45 K/mm3 (4.00-11.30)
[2023-10-29 05:39] LABS: Albumin/Globulin Ratio 0.8 (0.8-1.8); Bilirubin, Total 0.5 mg/dL (0.1-1.0); Bun/Creatinine Ratio 19.4 (12.0-20.0); Calcium, Blood 8.6 mg/dL (8.5-10.1); Creatinine, Blood 0.62 mg/dL (0.60-1.20); Globulin, Blood 3.9 g/dL (2.2-4.0); Potassium, Blood 3.6 mmol/L (3.5-5.5); Total Protein, Blood 6.9 g/dL (6.4-8.2)
[2023-10-29 07:48] VITALS: BP 141/72
[2023-10-29 11:06] VITALS: BP 128/77
--- NOTE | 2023-10-29 11:55 | NUR ---
THE PT IS NOT AWAKE ENOUGH FOR MEDICATIONS THIS AFTERNOON. DR. MONTEIRO MADE AWARE. HE ORDERED AN AMMONIA LEVEL, ENEMA, AND ABD XRAY ON THE PT. DR. MONTEIRO TOLD ME TO DO THE ENEMA AFTER THE XRAY TO DECREASE AGGITATION. SEE NOTES FOR MORE INFORMATION.
[2023-10-29 15:00] VITALS: BP 167/74
--- NOTE | 2023-10-29 15:22 | NUR ---
I CALLED DR. MONTEIRO ABOUT THE PT HAVING HIGH BP AND BEING STARTED ON CLINIMEX. HE D/C'D THE NS @ 125ML/HR. SEE NOTES FOR ANY MORE UPDATES.
--- NOTE | 2023-10-29 17:30 | NUR ---
SHIFT SUMMARY PT HAS ONLY BEEN ORINENTED TO SELF TODAY AND IS WORSENING IN MENATION. HAS BEEN MADE AWARE. HE HAD HIS MORNING MEDICATION. BUT HAS NOT HAD ANY OTHER ORAL INTAKE TODAY. HE WAS VERY AGGITATED, PULLING AT LINES, CLIMBING OOB, AND NOT REDIRECTABLE THIS MORNING. THIS AFTERNOON AND EVENING HE WAS VERY FATIGUED BUT STILL PULLING AT LINES OR TUBES. THE PT WAS NOT AWAKE ENOUGHT FOR ANY PO INTAKE FOR MEDICATIONS, AND HE STOPPED GETTING COMBATIVE DURING ROUNDING. AROUND 1600, WE DOWN GRADED HIS RESTRAINTS FROM GOPI VEST AND SOFT WRIST RESTRAINTS TO JUST THE SOFT WRIST RESTRAINTS WITH THE IN THE ROOM. HIS CAME AND GOT STAFF BECAUSE THE PT HAD HIS LEGS OOB AND WAS STILL CLIMBING OOB. WE GOT HIM REPOSTIONED AND SETTLED. WE DISCUSSED THAT HE MAY HAVE TO GO BACK IN THE GOPI AND SOFT WRIST RESTRAINTS. THIS WAS DISCUSSED WITH THE CHARGE NURSE WELL. HE HAS BEEN ON RA W/ SP02 >90%. DIETITION WAS CONSULTED AND WE STARTED THE PT ON PPN. HE IS A Q6 CBG. DR. MONTEIRO EVALUATED THE PT AND ORDERED AN AMMONIA LAB, ABD XR, FLEET ENEMA, AND HE UPDATED THE ON THE PT'S CARE. SEE NOTES FOR MORE UPDATES.
[2023-10-29 20:03] VITALS: BP 179/99
[2023-10-30 04:08] VITALS: BP 161/79
[2023-10-30 04:32] LABS: BASOPHILS ABSOLUTE AUTO 0.01 K/mm3 (0.00-0.23); BASOPHILS PERCENT AUTO 0 % (0-2); EOSINOPHILS ABSOLUTE AUTO 0.02 K/mm3 (0.00-0.68); EOSINOPHILS PERCENT AUTO 0 % (0-6); Hematocrit 41.3 % (37.0-53.0); Hemoglobin 13.5 g/dL (13.5-17.5); IMMATURE GRAN ABSOLUTE AUTO 0.02 K/mm3 (0.00-0.10); IMMATURE GRAN PERCENT AUTO 0 % (0-1); LYMPHOCYTES ABSOLUTE AUTO 1.37 K/mm3 (0.84-5.20); LYMPHOCYTES PERCENT AUTO 30 % (21-46); MONOCYTES ABSOLUTE AUTO 0.59 K/mm3 (0.16-1.47); MONOCYTES PERCENT AUTO 13 % (4-13); Mean Corpuscular HGB 27.7 pg (26.0-34.0); Mean Corpuscular HGB Conc 32.7 g/dL (31.5-36.5); Mean Corpuscular Volume 85 fL (80-100); Mean Platelet Volume 10.3 fL (9.1-12.4); NEUTROPHILS ABSOLUTE AUTO 2.57 K/mm3 (1.96-9.15); NEUTROPHILS PERCENT AUTO 56 % (41-73); Platelet Count 268 K/mm3 (150-400); RDW Coefficient Variation 14.8 % (11.7-14.2); RDW Standard Deviation 46.1 fL (35.1-46.3); Red Blood Cell Count 4.88 M/mm3 (4.30-5.90); White Blood Cell Count 4.58 K/mm3 (4.00-11.30)
[2023-10-30 04:55] LABS: Alanine Aminotransfer (ALT/SGP 71 U/L (12-78); Albumin, Blood 2.9 g/dL (3.4-5.0); Albumin/Globulin Ratio 0.7 (0.8-1.8); Alk Phos 65 U/L (50-136); Anion Gap 3 mmol/L (6-16); Aspartate Aminotrans (AST/SGOT 134 U/L (12-37); Bilirubin, Total 0.3 mg/dL (0.1-1.0); Blood Urea Nitrogen 18 mg/dL (8-24); Bun/Creatinine Ratio 28.9 (12.0-20.0); CO2, Blood 31 mmol/L (21-32); Calcium, Blood 8.2 mg/dL (8.5-10.1); Chloride, Blood 107 mmol/L (98-108); Creatinine, Blood 0.62 mg/dL (0.60-1.20); Glomerular Filtration Rate 94 (60-); Glucose, Blood 116 mg/dL (70-99); Magnesium, Blood 2.4 mg/dL (1.6-2.4); Phosphorus, Blood 2.5 mg/dL (2.5-4.9); Potassium, Blood 3.8 mmol/L (3.5-5.5); Sodium, Blood 141 mmol/L (136-145); Total Protein, Blood 6.9 g/dL (6.4-8.2); Triglycerides 66 mg/dL (30-160)
--- NOTE | 2023-10-30 04:56 | NUR ---
END OF SHIFT NOTE: PT PLEASANTLY CONFUSED THIS SHIFT. LETHARGIC, ORIENTED TO SELF ONLY. CONTINUES PULLING AT LINES, CORDS; BILATERAL WRIST RESTRAINTS REMAIN IN PLACE PER ORDERS W/ FREQUENT BREAKS WHEN STAFF ARE PRESENT. GOPI VEST NOT UTILIZED OVERNIGHT. ABLE TO VOICE SOME NEEDS TO STAFF WHEN PROMPTED VERBALLY. HR 60-70'S, MEDICAL WITHOUT TELE STATUS. SBP 160-170'S, MAP >65. DENIES CHEST PAIN/PRESSURE. SPO2 >93% ON RA. AFEBRILE. REPOSITIONED Q2HRS T/O SHIFT FOR PRESSURE ULCER PREVENTION. CONDOM CATH IN PLACE DUE TO INCONTINENCE, DRAINING YELLOW URINE TO GRAVITY; CC CHANGED THIS SHIFT. NO BM'S. ATTENDS CHANGED PRN TO KEEP C/D/I. PPN INFUSING PER ORDERS, Q6HR CBG'S. PT REMAINS NPO AT THIS TIME DUE TO SPEECH THERAPY ORDERS; PT WAS EXTREMELY LETHARGIC AT START OF SHIFT AND FALLING ASLEEP MID-INTERACTION, SO ALL PM MEDICATIONS WERE HELD DUE TO ASPIRATION RISK. NO OTHER NEEDS AT THIS TIME. PT IS RESTING IN BED W/ CALL LIGHT WITHIN REACH. BED IN LOWEST POSITION, BED ALARM ON. WILL REPORT TO ONCOMING RN.
[2023-10-30 09:00] VITALS: BP 95/56
[2023-10-30 11:48] VITALS: BP 148/84
--- NOTE | 2023-10-30 13:13 | NUR ---
MORNING SUMMARY PT HAS BEEN MORE ALER TODAY AND IS ORIENTED TO SELF AND FAMILY. HE HAS MUMBLED BUT CLEARER SPEECH. HE WAS ABLE TO TAKE HIS PO MEDICATIONS CRUSHED IN APPLE SAUCED, AND WAS ABLE TO PREFORM HIS OWN ORAL CARE POST MEDICATIONS. HE STILL IS IN GLUE MIXER RESTRAINTS BECAUSE OF CONFUSION, ATTEMPTING TO GET OOB, PULLING AT LINES/TUBES, AND STILL NOT FOLLOWING ALL DIRECTIONS. HE HAS BEEN ON RA W/ SP02 >93%, AND HAS BEEN MEDICAL STATUS W/O TELE. THE PT HAS DENIED ANY DISCOMFORTS THIS SHIFT. NO ACUTE EVENTS. SEE NOTES FOR ANY UPDATES. FIRE IGNITION RISK HAS BEEN ASSESSED. SEE NOTES FOR ANY UPDATES.
--- NOTE | 2023-10-30 14:45 | NUR ---
Note: Assumed care of patient. Pt awake, oriented to self and , following directions. VSS. at bedside. Removed Bilateral soft wrist restraints while in room with the understanding that if he starts to pull at lines he would have to go back into restraints. verbalized understanding. Pt did not start pulling at lines when taken out of BWR. Jere vest still on. Speech therapy coming into room to assess swallow. HERBERTH with powerglide running clinamix and lipids. Call light in reach. WIll continue to monitor.
[2023-10-30 14:49] VITALS: BP 141/98
--- NOTE | 2023-10-30 19:07 | NUR ---
SHIFT SUMMARY Pt sitting up in bed with at bedside. Currently out of all restraints. Rash to back noted. Powder placed. Pt has done well this shift. Has been able to follow more instructions and was able to start on a mechanical soft diet. Report given to night RN and stable at end of shift. Bed alarm on
[2023-10-30 19:25] VITALS: BP 134/77
--- NOTE | 2023-10-30 22:26 | NUR ---
ASSUMPTION OF CARE: THIS RN ASSUMED CARE OF PT AT APPROX 1900. PT ALERT, ORIENTED TO SELF AND ; AT BEDSIDE AT START OF SHIFT. PT CONVERSANT W/ MUMBLED, SOFT SPEECH; PLEASANT AND COOPERATIVE W/ CARE BEING PROVIDED. ABLE TO SWALLOW MEDS WHOLE W/ WATER, MINIMAL DIRECTION PROVIDED BY THIS RN. NO VISIBLE SIGNS OF ASPIRATION DURING PO INTAKE OBSERVED. HR 60'S, NO TELE PER ORDERS. BP STABLE, MAP >65. SPO2 >95% ON RA. ALL RESTRAINTS OFF AT THIS TIME, PT HAS NOT PULLED AT LINES OR CORDS. BED ALARM IS ON FOR PT SAFETY/FALL PREVENTION. HERBERTH PG INFUSING CLINAMIX PER ORDERS. 1 SOFT BM AT BEGINNING OF SHIFT, ATTENDS CHANGED. CC REMAINS IN PLACE DRAINING YELLOW URINE TO GRAVITY. NO OTHER NEEDS AT THIS TIME. CALL LIGHT WITHIN REACH, BED IN LOWEST POSITION.
--- NOTE | 2023-10-30 22:50 | NUR ---
PHYSICIAN CONTACT: PT W/ INCREASING AGITATION THIS PM, ATTEMPTING TO CLIMB OUT OF BED STATING HE NEEDS TO GO HOME. PT THREATENED TO HIT THIS RN WHILE REMOVING PERIPHERAL IV BY DISPLAYING FIST AND MOTIONING TOWARDS THIS RN. CALL PLACED TO RESIDENT PHYSICIAN. ORDERS RECEIVED TO PLACE RESTRAINTS BACK ON FOR PT SAFETY & 1X DOSE OF ZYPREXA IM. WILL ADMINISTER PER EMAR. BILATERAL SOFT WRIST RESTRAINTS PLACED AT THIS TIME FOR PT SAFETY, SEE RESTRAINT ASSESSMENTS FOR FURTHER DETAILS. BILINGUAL COUNTER SALES RETAIL AWARE. CALL LIGHT IN REACH.
[2023-10-31 03:35] VITALS: BP 175/98
[2023-10-31 04:06] LABS: Bun/Creatinine Ratio 33.2 (12.0-20.0); Calcium, Blood 8.4 mg/dL (8.5-10.1); Creatinine, Blood 0.63 mg/dL (0.60-1.20); Magnesium, Blood 2.3 mg/dL (1.6-2.4); Phosphorus, Blood 2.5 mg/dL (2.5-4.9); Potassium, Blood 3.6 mmol/L (3.5-5.5)
--- NOTE | 2023-10-31 05:18 | NUR ---
END OF SHIFT NOTE: PT STARTED SHIFT PLEASANT & COOPERATIVE W/ CARE, BUT BECAME AGITATED, RESTLESS, AND DISPLAYED A CLOSED FIST WHILE MOTIONING TOWARDS THIS RN IF THREATENING TO PUNCH THIS RN. CONTINUES PULLING AT LINES & CORDS, ATTEMPTING TO CLIMB OOB FREQUENTLY; BILATERAL WRIST RESTRAINTS REAPPLIED PER MD ORDERS TO ENSURE PT SAFETY. ZYPREXA ADMINISTERED PER EMAR, PT W/ SLIGHTLY DECREASED AGITATION BUT CONTINUES ATTEMPTING TO CLIMB OOB & PULL AT LINES. FREQUENT BREAKS FROM RESTRAINTS PROVIDED WHEN STAFF PRESENT. HR 60'S, MEDICAL W/O TELE STATUS. SBP 130-170'S W/ 170'S WHILE PT IS CONTINUALLY CLENCHING FISTS & NOT REDIRECTABLE; MAP >65. DENIES CHEST PAIN/PRESSURE. SPO2 >93% ON RA. AFEBRILE. REPOSITIONED Q2HRS T/O SHIFT FOR PRESSURE ULCER PREVENTION WHEN PT IS COOPERATIVE; PT FREQUENTLY REMOVES ALL PILLOWS IMMEDIATELY FOLLOWING REPOSITIONING. CONDOM CATH IN PLACE DUE TO INCONTINENCE, DRAINING RICO URINE W/ SMALL BLOOD CLOTS TO GRAVITY. URINE HAS PROGRESSIVELY GOTTEN DARKER T/O SHIFT. 2 BM'S, ATTENDS CHANGED PRN TO KEEP C/D/I. CLINAMIX INFUSING PER ORDERS. PT ABLE TO TAKE PO MEDS W/ WATER AT START OF SHIFT WHEN ABLE TO FOLLOW DIRECTIONS. PT W/ C/O BACK & NECK PAIN, MEDICATED W/ TYLENOL PER RECTUM, FLACC SCALE IMPROVEMENT. NO OTHER NEEDS AT THIS TIME. PT IS RESTING IN BED W/ CALL LIGHT WITHIN REACH. BED IN LOWEST POSITION, BED ALARM ON. WILL REPORT TO ONCOMING RN.
[2023-10-31 07:24] VITALS: BP 148/79
--- NOTE | 2023-10-31 14:30 | NUR ---
UPDATE PT'S CALLS THIS RN IN TO ROOM. PT GRABBING HIS RIGHT HIP AND GRIMACING. TO NOT CONSOLABLE AND THRASHING IN THE BED. DR. FARNSWORTH CALLED AND NOTIFIED. ORDERS FOR IMAGING AND TYLENOL. WILL MEDICATE PER EMAR. 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 PT UNABLE TO DESCRIBE PAIN. WILL CONTINUE TO MONITOR CLOSELY
[2023-10-31 15:09] VITALS: BP 114/60
[2023-10-31 16:12] VITALS: BP 156/79
--- NOTE | 2023-10-31 17:17 | NUR ---
SHIFT SUMMARY PT REMAINS ORIENTED TO SELF AND SPOUSE. PT MUMBLES MOST OF SHIFT. PT WILL OCCASIONALLY FOLLOW DIRECTIONS, BUT NOT CONSISTENTLY. VS STABLE. O2 SATS REMAIN ABOVE 90% ON RA. PT HAS DENIED PAIN TO RIGHT HIP SINCE TYLENOL ADMINISTRATION. PT HAS HAD BLOODY URNIE MOST OF SHIFT. PT REPOSITIONED Q2H. SPOUSE AT BEDSIDE MOST OF AFTERNOON. WILL CONTINUE TO MONITOR AND REPORT TO ONCOMING RN
[2023-10-31 20:59] VITALS: BP 122/72
[2023-11-01 04:55] VITALS: BP 129/73
[2023-11-01 05:25] LABS: Bun/Creatinine Ratio 28.4 (12.0-20.0); Calcium, Blood 8.5 mg/dL (8.5-10.1); Creatinine, Blood 0.67 mg/dL (0.60-1.20); Magnesium, Blood 2.3 mg/dL (1.6-2.4); Phosphorus, Blood 2.8 mg/dL (2.5-4.9); Potassium, Blood 4.2 mmol/L (3.5-5.5)
--- NOTE | 2023-11-01 05:39 | NUR ---
END OF SHIFT NOTE: PT REMAINED PLEASANT & COOPERATIVE W/ CARE T/O NOC. WRIST RESTRAINTS REMAINED OFF FOR ENTIRE SHIFT. ALERT, ORIENTED TO SELF. ATTEMPTED TO CLIMB OUT OF BED X2, REDIRECTABLE AND COOPERATIVE W/ RETURNING TO BED. HR 70'S, MEDICAL W/O TELE STATUS. SBP 120'S, MAP >65. DENIES CHEST PAIN/PRESSURE. SPO2 >95% ON RA. AFEBRILE. REPOSITIONED T/O SHIFT FOR PRESSURE ULCER PREVENTION, HOWEVER, PT WAS ABLE TO INDEPENDENTLY REPOSITION SELF INDEPENDENTLY T/O THE NIGHT. MULTIPLE INCONTINENT VOIDS, RED IN COLOR W/ FEW SMALL BLOOD CLOTS PRESENT. NO BM'S, ATTENDS CHANGED PRN TO KEEP C/D/I. PT ABLE TO TAKE PO MEDS W/ PUDDING WHEN ALERT & ABLE TO FOLLOW COMMANDS. PT DENIED PAIN T/O THE NIGHT. NO OTHER NEEDS AT THIS TIME. PT IS RESTING IN BED W/ CALL LIGHT IN REACH. BED IN LOWEST POSITION, BED ALARM ON. WILL REPORT TO ONCOMING RN.
[2023-11-01 07:36] VITALS: BP 147/75
[2023-11-01 14:05] VITALS: BP 121/73
[2023-11-01 14:19] LABS: BASOPHILS ABSOLUTE AUTO 0.02 K/mm3 (0.00-0.23); BASOPHILS PERCENT AUTO 0 % (0-2); EOSINOPHILS ABSOLUTE AUTO 0.15 K/mm3 (0.00-0.68); EOSINOPHILS PERCENT AUTO 3 % (0-6); Hematocrit 40.2 % (37.0-53.0); IMMATURE GRAN PERCENT AUTO 2 % (0-1); LYMPHOCYTES ABSOLUTE AUTO 1.25 K/mm3 (0.84-5.20); LYMPHOCYTES PERCENT AUTO 21 % (21-46); MONOCYTES ABSOLUTE AUTO 0.69 K/mm3 (0.16-1.47); MONOCYTES PERCENT AUTO 12 % (4-13); Mean Corpuscular HGB 27.7 pg (26.0-34.0); Mean Corpuscular HGB Conc 32.3 g/dL (31.5-36.5); Mean Corpuscular Volume 86 fL (80-100); Mean Platelet Volume 10.7 fL (9.1-12.4); NEUTROPHILS ABSOLUTE AUTO 3.68 K/mm3 (1.96-9.15); NEUTROPHILS PERCENT AUTO 63 % (41-73); Platelet Count 352 K/mm3 (150-400); RDW Coefficient Variation 14.7 % (11.7-14.2); RDW Standard Deviation 46.1 fL (35.1-46.3); Red Blood Cell Count 4.69 M/mm3 (4.30-5.90); White Blood Cell Count 5.89 K/mm3 (4.00-11.30)
--- NOTE | 2023-11-01 17:27 | NUR ---
SHIFT SUMMARY PT SLEPT MOST OF SHIFT. MENTATION REMAINS UNCHANGED. VS STABLE. PT REMAINS ON ROOM AIR. PT INCONTINENT OF URINE MOST OF SHIFT. AT BEDSIDE. WILL CONTINUE TO MONITOR AND REPORT TO ONCOMING RN
[2023-11-01 20:55] VITALS: BP 133/76
[2023-11-02 04:31] VITALS: BP 144/77
[2023-11-02 05:55] LABS: Bun/Creatinine Ratio 39.7 (12.0-20.0); Calcium, Blood 8.6 mg/dL (8.5-10.1); Creatinine, Blood 0.58 mg/dL (0.60-1.20)
--- NOTE | 2023-11-02 06:30 | NUR ---
SHIFT SUMMARY ORIENTATED TO SELF AND OCCASIONALLY TO FAMILY MEMBER, BUT REMAINS PLEASANTLY CONFUSED FOR MAJORITY OF THE SHIFT. CONTINUES ATTEMPTING TO CLIMB OUT OF BED WITHOUT STAFF ASSIST WELL PULL AT LINES/CORDS/ATTENDS. UNABLE TO REDIRECT. CARDIAC CASTELLON, REMAINS MED STATUS WITHOUT TELE, BUT DENIES EXPERIENCING ANY CP AND OR PRESSURE. SBP HAS BEEN STABLE RANGING 130-140'S. RESPIRATORY, MAINTAINS SPO2 >92% ON RA, DENIES FEELING SOB WHEN AT REST. NOTED TO HAVE AUDIBLE SNORE WHEN SLEEPING HOWEVER. ABLE TO SWALLOW MOST PILLS WHOLE WITH APPLESAUCE. GI/, CONTINUES TO BE INCONTINENT OF URINE WITH ATTENDS IN PLACE. PT WOULD OFTEN RIP OFF ATTENDS IN ATTEMPT TO SOAK THE BED. ATTENDS CHANGED PRN TO KEEP C/D/I. NO BM THIS SHIFT. Q2 HR REPOSITIONING USED TO PREVENT ANY SKIN BREAKDOWN. ASSESSED PT FOR RISKS OF ANY IGNITION SOURCES WELL BEHAVIORS FOR INCREASED RISKS OF FIRE DANGER. PT EDUCATED ON COMMON SOURCES OF IGNITION WELL NEED TO KEEP A SAFE ENVIRONMENT. NO NEW ORDERS AT THIS TIME, WILL REPORT TO ONCOMING RN. LISSY WOODWARD OF THIS NOTE
[2023-11-02 08:21] VITALS: BP 112/71
[2023-11-02 14:14] LABS: BASOPHILS ABSOLUTE AUTO 0.02 K/mm3 (0.00-0.23); BASOPHILS PERCENT AUTO 0 % (0-2); EOSINOPHILS ABSOLUTE AUTO 0.16 K/mm3 (0.00-0.68); EOSINOPHILS PERCENT AUTO 2 % (0-6); Hemoglobin 12.8 g/dL (13.5-17.5); IMMATURE GRAN ABSOLUTE AUTO 0.13 K/mm3 (0.00-0.10); IMMATURE GRAN PERCENT AUTO 2 % (0-1); LYMPHOCYTES ABSOLUTE AUTO 1.22 K/mm3 (0.84-5.20); LYMPHOCYTES PERCENT AUTO 16 % (21-46); MONOCYTES ABSOLUTE AUTO 0.91 K/mm3 (0.16-1.47); MONOCYTES PERCENT AUTO 12 % (4-13); Mean Corpuscular HGB 27.9 pg (26.0-34.0); Mean Corpuscular HGB Conc 32.8 g/dL (31.5-36.5); Mean Corpuscular Volume 85 fL (80-100); Mean Platelet Volume 10.8 fL (9.1-12.4); NEUTROPHILS ABSOLUTE AUTO 5.19 K/mm3 (1.96-9.15); NEUTROPHILS PERCENT AUTO 68 % (41-73); Platelet Count 391 K/mm3 (150-400); RDW Coefficient Variation 14.8 % (11.7-14.2); Red Blood Cell Count 4.59 M/mm3 (4.30-5.90); White Blood Cell Count 7.63 K/mm3 (4.00-11.30)
[2023-11-02 15:53] VITALS: BP 138/71
--- NOTE | 2023-11-02 16:33 | NUR ---
Shift Summary Pt alert, oriented to self, knows president but states date is 12/23. Pt impulsive, not using call light. Pt up with 1 person assist. Pt denies pain, chest pain/pressure, sob, nausea, dizziness and numb/tingling. BP and heart rate wnl. Spo2 >90% on ra. Other vss. No other acute changes noted. Will continue to monitor.
[2023-11-02 20:03] VITALS: BP 161/87
--- NOTE | 2023-11-02 23:27 | NUR ---
ASSUMED CARE OF PT AT 1900. AOX1-2, PLEASANT, MOSTLY COOPERATIVE WITH CARE. REMAINS CONFUSED BUT HAS BEEN COOPERATIVE THUS FAR. REDIRECTABLE. PER REPORT, PT HAS BEEN IMPULSIVE BUT SINCE SHIFT ASSESSMENT PT HAS BEEN RESTING COMFORTABLY IN BED. TURNING SELF. DOES NOT USE CALL LIGHT BUT HAS NOT BEEN IMPULSIVE. BED ALARM REMAINS ACTIVE FOR SAFETY. MED STATUS NO TELE. VITAL SIGNS HAVE BEEN STABLE. PT WAS AT BEDSIDE FOR SHIFT ASSESSMENT AND MED PASS AND NOTED THAT SHE BELIEVES PT IS BASICALLY AT BASELINE MENTATION CASTELLON. BED LOCKED IN LOWEST POSITION. CALL LIGHT LEFT WITHIN REACH. BED ALARM REMAINS ACTIVE. CONTINUING TO MONITOR. WILL HAND OFF TO JENNIFER LONG AT 0100.
[2023-11-03 03:02] VITALS: BP 119/71
--- NOTE | 2023-11-03 06:14 | NUR ---
NOC SHIFT SUMMARY ASSUMED CARE OF PT FROM JOSE CARLOS YOON RN @0100. PT SLEPT WELL, AROUSABLE BY VOICE. DENIED PAIN OR DISCOMFORT. NO ATTEMPTS TO EXIT BED AND REDIRECTABLE. VSS. WILL PASS ON TO DAY RN
[2023-11-03 16:23] VITALS: BP 138/77
--- NOTE | 2023-11-03 16:56 | NUR ---
REPORT RECIEVED FROM DERRICK ROUSE RN. AWAITING PT ARRIVAL AT THIS TIME.
--- NOTE | 2023-11-03 17:19 | NUR ---
Transfer note Pt alert to self and spouse. Pleasantly confused and impulsive. Pt up with 1-2 person assist with gaitbelt and walker. Pt denies pain, chest pain/pressure, sob, nausea, dizziness and numb/tingling. Spo2 >90% on ra, breathing even and unlabored. BP and heart rate wnl. Other vss. No other acute changes noted. Will continue to monitor.
--- NOTE | 2023-11-03 18:21 | NUR ---
SHIFT SUMMARY/TRANSFER SUMMARY PT TRANSFERRED FROM PCU 9 THIS SHIFT WITH PT'S SPOUSE PRESENT. TWO RN SKIN ASSESSEMENT AND SHIFT ASSESSMENT COMPLETED ON ARRIVAL. VSS. PT'S SPOUSE IN ROOM, VERY KIND AND PATIENT WITH SPOUSE, ASSISTING WITH CARE. PT UP IN CHAIR WITH CHAIR ALARM EATING DINNER. CALL LIGHT WITHIN REACH, ORIENTED TO ROOM. PT DENIES PAIN, SOB AND NV. AXO X2.
[2023-11-03 19:29] VITALS: BP 138/69
[2023-11-03] MEDS ORDERED: CARBIDOPA-LEVO1 EA17 PO (19:29)
[2023-11-04 03:02] VITALS: BP 124/81
--- NOTE | 2023-11-04 07:26 | NUR ---
SHIFT SUMMARY PT IS A&O TO HIMSELF AND HIS . VSS ON RA. AT BEDSIDE FOR NOC MED PASS. PT TOOK PILLS ONE AT A TIME WITH THICKENED WATER. PT WAS RUBBING HIS RIGHT HIP THIS MORNING AND MOANING OUT IN PAIN, SO I GAVE HIM PRN TYLENOL. X2 ASSIST WITH FWW TO BR. PT INCONTINENT OF URINE T/O NOC, BRIEF IN PLACE. NO BM THIS SHIFT. PT PULLED OUT HIS LUE POWERGLIDE. I CALLED MD, AND GOT AN ORDER FOR NO IV. BED IN LOWEST POSITION, CALL LIGHT WITHIN REACH. PT DOES NOT CALL, BED ALARM SET FOR PT'S SAFETY. ENHANCED PRECAUTIONS MAINTAINED.
[2023-11-04 08:24] VITALS: BP 141/75
[2023-11-04] MEDS ORDERED: QUET25 PO (14:49)
[2023-11-04] MEDS ORDERED: CLOP75 PO (14:49)
--- NOTE | 2023-11-04 15:49 | NUR ---
Patient ready for discharge. Pt recommending home with HH. Home equipment ordered, home caregiver agency came to hospital to meet with patient and . Patient discharging home with caregiver support. Reviewed discharge meds with , patient/ verbalized understanding. Patient left at 1530.
== END 2023-11-04 15:19 | disposition home health service (06) | DRG 177 ==
LOC: ER 13:57 → PCU 18:04 → MEDS 18:04 → PCU 18:23 → MEDS 11-03 17:14
PROVIDERS: Emergency Medicine; Family Medicine; Internal Medicine; ADMIT Hospitalist
PROC: 8E0ZXY6 Isolation (ICD-10-PCS; principal; 2023-11-03)
DX: U07.1 COVID-19 (principal); I21.A1 Myocardial infarction type 2; J12.82 Pneumonia due to coronavirus disease 2019; N39.0 Urinary tract infection, site not specified; G93.49 Other encephalopathy; F02.C11 Dementia in other diseases classified elsewhere, severe, with agitation; F02.C4 Dementia in other diseases classified elsewhere, severe, with anxiety; F02.C2 Dementia in other diseases classified elsewhere, severe, with psychotic disturbance; Z66 Do not resuscitate; I48.0 Paroxysmal atrial fibrillation; N40.0 Benign prostatic hyperplasia without lower urinary tract symptoms; M16.0 Bilateral primary osteoarthritis of hip; G20.A1 Parkinson's disease without dyskinesia, without mention of fluctuations; R31.9 Hematuria, unspecified; L24.9 Irritant contact dermatitis, unspecified cause; R13.10 Dysphagia, unspecified; Z78.1 Physical restraint status; Z91.81 History of falling
CPT/HCPCS: 36415; 70450; 71045; 73502; 74018; 76770; 80048; 80053; 80061; 81001; 82140; 82728; 82947; 83036; 83615; 83735; 83880; 84100; 84443; 84478; 84484; 85025; 85379; 85520; 85610; 85730; 86140; 87086; 92526; 92610; 93005; 93010; 93306; 97110; 97112; 97116; 97162; 97166; 97530; 97535; 99285-25; A9270; C1751; J0696; J1644; J1650; J2704; J3010; J3411; J7030

== ENCOUNTER → 2023-10-25 | Outpatient (CLI) | payer OTHER ==
[~2023-10-25] MED LIST: CARBIDOPA-LEVO1 EA15 PO; CARBLEV25 PO; CARBLEV25 SL; INBRIJA42 M1 INH; RASAGILINE PO; RIVASTIGMINE PO; TAMSULOSIN HCL0.4 M1 PO
[2023-10-25 12:37] LABS: BASOPHILS ABSOLUTE AUTO 0.01 K/mm3 (0.00-0.23); BASOPHILS PERCENT AUTO 0 % (0-2); EOSINOPHILS PERCENT AUTO 0 % (0-6); Hematocrit 41.8 % (37.0-53.0); Hemoglobin 13.7 g/dL (13.5-17.5); IMMATURE GRAN ABSOLUTE AUTO 0.04 K/mm3 (0.00-0.10); IMMATURE GRAN PERCENT AUTO 1 % (0-1); LYMPHOCYTES ABSOLUTE AUTO 0.91 K/mm3 (0.84-5.20); LYMPHOCYTES PERCENT AUTO 16 % (21-46); MONOCYTES ABSOLUTE AUTO 0.85 K/mm3 (0.16-1.47); MONOCYTES PERCENT AUTO 15 % (4-13); Mean Corpuscular HGB Conc 32.8 g/dL (31.5-36.5); Mean Corpuscular Volume 85 fL (80-100); Mean Platelet Volume 9.8 fL (9.1-12.4); NEUTROPHILS ABSOLUTE AUTO 3.86 K/mm3 (1.96-9.15); NEUTROPHILS PERCENT AUTO 68 % (41-73); Platelet Count 267 K/mm3 (150-400); RDW Coefficient Variation 15.3 % (11.7-14.2); RDW Standard Deviation 47.8 fL (35.1-46.3); White Blood Cell Count 5.67 K/mm3 (4.00-11.30)
[2023-10-25 12:41] LABS: Bun/Creatinine Ratio 20.3 (12.0-20.0); Calcium, Blood 8.5 mg/dL (8.5-10.1); Creatinine, Blood 1.18 mg/dL (0.60-1.20)
== END ==
LOC: LAB SHORT 12:32 → LAB 12:32
PROVIDERS: Physician Assistant Surgical
DX: R55 Syncope and collapse (principal)
CPT/HCPCS: 80048; 84484; 85025

== ENCOUNTER → 2023-12-22 | Outpatient (CLI) | payer OTHER ==
[~2023-12-22] MED LIST changes: +CARBIDOPA-LEVO1 EA17 PO; +CLOP75 PO; +QUET25 PO
[2023-12-22 13:14] LABS: Source, Urine Voided
[2023-12-22 16:00] LABS: Appearance, Urine Clear (Clear); Bilirubin, Urine Neg (Neg); Blood, Urine Neg (Neg); Color, Urine Yellow (P-Yellow); Glucose Qualitative, Urine Neg (Neg); Ketones, Urine Neg (Neg); Leukocyte Esterase, Urine Neg (Neg); Nitrite, Urine Neg (Neg); Protein, Urine Neg (Neg); Urobilinogen, Urine NORM (Normal)
== END | disposition home or self-care (01) ==
LOC: LAB SHORT 11:50 → LAB 11:50
PROVIDERS: Physician Assistant
DX: R35.0 Frequency of micturition (principal)
CPT/HCPCS: 81003

== ENCOUNTER → 2024-05-19 | Outpatient (CLI) | payer OTHER ==
[2024-05-19 12:45] LABS: Source, Urine Clean Catch
[2024-05-19 15:31] LABS: Appearance, Urine Hazy (Clear); Bilirubin, Urine Neg (Neg); Blood, Urine 5+ (Neg); Color, Urine Yellow (P-Yellow); Glucose Qualitative, Urine Neg (Neg); Ketones, Urine 2+ (Neg); Leukocyte Esterase, Urine 1+ (Neg); Nitrite, Urine Neg (Neg); Protein, Urine 2+ (Neg); Urobilinogen, Urine NORM (Normal)
[2024-05-19 15:41] LABS: Bacteria Few /hpf; Calcium Oxalate Crystals Few /hpf; Red Blood Cells, Urine 50-100 /hpf (0-2); Squamous Epithelial Cells Few /hpf (Few)
[2024-05-19 15:42] LABS: Mucus Light (0-Heavy)
== END | disposition home or self-care (01) ==
LOC: LAB 11:15 → LAB SHORT 11:15
PROVIDERS: Physician Assistant
DX: R35.0 Frequency of micturition (principal)
CPT/HCPCS: 81001; 87086

== ENCOUNTER → 2025-01-06 | Outpatient (CLI) | payer OTHER ==
[2025-01-06 16:06] LABS: Source, Urine Clean Catch
[2025-01-06 16:24] LABS: Appearance, Urine Hazy (Clear); Bilirubin, Urine Neg (Neg); Blood, Urine Neg (Neg); Color, Urine Amber (P-Yellow); Glucose Qualitative, Urine Neg (Normal); Ketones, Urine 1+ (Neg); Leukocyte Esterase, Urine Trace (Neg); Nitrite, Urine Neg (Neg); Protein, Urine Neg (Neg); Urobilinogen, Urine 1+ (Normal)
[2025-01-06 16:25] LABS: Bacteria Not Seen /hpf; Red Blood Cells, Urine 0-2 /hpf (0-2); Squamous Epithelial Cells Rare /hpf (Few)
[2025-01-06 16:26] LABS: Mucus Mod (0-Heavy)
== END ==
LOC: LAB 15:27 → LAB SHORT 15:27
PROVIDERS: Physician Assistant
DX: E86.0 Dehydration (principal)
CPT/HCPCS: 81001; 87086